=== PATIENT | male | born 2000 | race Caucasian/White ===

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

== ENCOUNTER 2025-07-07 20:26 | Emergency (ER) | payer OTHER ==
[2025-07-07 20:46] VITALS: BP 139/92; PULSE 102
[2025-07-07] MEDS: Acetaminophen/oxyCODONE 325-5 MG Tab PO ONE (21:17)
== END 2025-07-07 22:17 | disposition home or self-care (01) ==
LOC: JD.ED 20:26
DX: S06.0XAA Concussion with loss of consciousness status unknown, initial encounter (principal); F17.200 Nicotine dependence, unspecified, uncomplicated; Z91.0110 Allergy to milk products, unspecified; Z88.8 Allergy status to other drugs, medicaments and biological substances; W20.8XXA Other cause of strike by thrown, projected or falling object, initial encounter
CPT/HCPCS: 99283; A9270-GY